=== PATIENT | male | born 1945 | race Caucasian/White ===

== ENCOUNTER 2024-08-26 08:42 | Outpatient (OUT) | payer MEDICARE, OTHER, SELFPAY ==
--- NOTE | 2024-08-24 09:39 | V.VEINS.HP ---
Vital Signs 08/26/24 09:06 08/26/24 10:28 Weight 99.79 kg BP 130/68 156/73 H BP Location Left Brachial Left Radial BP Position Sitting Sitting BP Cuff Size Adult Large Adult BP Source Manual Cuff Automatic Cuff Respiration 18 22 H Pulse 80 Pulse Source Monitor Monitor Pulse Oximetry (%) 95 94 L Oxygen Delivery Method Room Air Room Air Comment The patient's blood pressure is elevated. The patient's blood pressure is elevated. Varicose Veins Patient is a 79 year old male in this day as a referral from his PCP Dr. Bedoya secondary to redness and swelling to left lower leg. Patient states in October of 2023 he developed a spontaneous ulcer to his left mid medial-posterior lower leg. This ulcer still exitsts to this day 1.5cm in diameter. Since then he has been treated by wound at [facility], cardiology involving diuretic therapy, and PCP for cellulitis of this area to left lower leg. Patient c/o edema and significant tenderness to touch mostly noted to left lower leg. Patient states wound clinic initiated bilateral leg knee high compression stockings approximately 3 months ago and this had helped with edema. IBandar MD personally performed the services described in this documentation, as scribed by Tin Montague RN in my presence and it is both accurate and complete. I, Tin Montague RN, am scribing for, and in the presence of, Dr. Bandar Ledezma and in the presence of the patient. . thigh: bilateral (symptoms mostly noted to left leg), knee: bilateral, calf: bilateral, ankle: bilateral and silver: bilateral dull and tender 2 9 months Worsened in recent months: Yes standing and sitting Reports erythema, limb pain and edema History of lower extremity trauma: No Superficial thrombophlebitis: No Family history of varicose veins: no Has patient had previous lower extremity venous surgery: No Patient has previously received the following treatment(s) for lower extremity varicose veins: Reports none Does patient have a history of : not applicable Has patient had lower extremity venous scan with relux testing: No Support hose used: Yes Problems walking or doing physical activity: Yes How does it affect you: weakness Do you walk much: No Do you stand much: No Review of Systems ROS Narrative Bandar Hughes MD personally performed the services described in this documentation, as scribed by iTn Montague RN in my presence and it is both accurate and complete. ITin RN, am scribing for, and in the presence of, Dr. Bandar Ledezma and in the presence of the patient. Status of ROS 10 or more systems reviewed and unremarkable except as noted in history and below Cardiovascular Reports: edema Integumentary/Breast Reports: itching, redness, skin pain, skin tenderness, skin swelling, new lesion, non-healing lesion and changes in skin color Neurological Reports: weakness in extremities PFSH PFSH Medical History (Updated 08/26/24 @ 09:20 by Tin Montague) Pacemaker ?Z95.0 - Presence of cardiac pacemaker (ICD-10) Carpal tunnel syndrome on both sides ?G56.03 - Carpal tunnel syndrome, bilateral upper limbs (ICD-10) Essential (primary) hypertension ?I10 - Essential (primary) hypertension (ICD-10) Gastroesophageal reflux ?K21.9 - Gastro-esophageal reflux disease without esophagitis (ICD-10) Hyperlipidemia ?E78.5 - Hyperlipidemia, unspecified (ICD-10) Lower back pain ?M54.50 - Low back pain, unspecified (ICD-10) Lumbar pain ?M54.50 - Low back pain, unspecified (ICD-10) Stenosis of right carotid artery ?I65.21 - Occlusion and stenosis of right carotid artery (ICD-10) Osteoarthritis ?M19.90 - Unspecified osteoarthritis, unspecified site (ICD-10) Bleeding hemorrhoids ?K64.9 - Unspecified hemorrhoids (ICD-10) Varicose veins of bilateral lower extremities with pain ?I83.813 - Varicose veins of bilateral lower extremities with pain (ICD-10) Surgical History (Updated 08/26/24 @ 10:31 by Tin Montague) Status post laser ablation of incompetent vein ?Z98.890 - Other specified postprocedural states (ICD-10) Hx laparoscopic cholecystectomy ?Z90.49 - Acquired absence of other specified parts of digestive tract (ICD-10) H/O heart artery stent ?Z95.5 - Presence of coronary angioplasty implant and graft (ICD-10) H/O aortic valve replacement ?Z95.2 - Presence of prosthetic heart valve (ICD-10) Mechanical heart valve present ?Z95.2 - Presence of prosthetic heart valve (ICD-10) H/O prosthetic heart valve ?Z95.2 - Presence of prosthetic heart valve (ICD-10) Family History (Updated 08/24/24 @ 09:53 by Tin Montague) Other Family history of CHF (congestive heart failure) Family history of diabetes mellitus Family history of myocardial infarction Social History (Updated 08/26/24 @ 09:20 by Tin Montague) Within the past year, how often did you have a drink containing alcohol: never Score interpretation: A score less than 4 is consistent with normal alcohol consumption. Smoking status: Never smoker Non-prescribed substance use: denies use Meds Home Medications and Allergies Home Medications ?Medication ?Instructions ?Recorded ?Confirmed ?Type albuterol sulfate 2.5 mg/0.5 mL 2.5 mg inhalation Q4H PRN 08/24/24 08/24/24 History solution for nebulization shortness of breath or wheezing aspirin 81 mg tablet,delayed 81 mg PO DAILY 08/24/24 08/24/24 History release (Adult Aspirin Regimen) cefdinir 300 mg capsule 300 mg PO BID 08/24/24 08/24/24 History furosemide 08/24/24 History metoprolol succinate 25 mg 12.5 mg PO DAILY 08/24/24 08/24/24 History tablet,extended release 24 hr omeprazole 40 mg capsule,delayed 40 mg PO DAILY 08/24/24 08/24/24 History release pravastatin 80 mg tablet 80 mg PO DAILY 08/24/24 08/24/24 History warfarin 2.5 mg tablet 2.5 mg PO DAILY 08/24/24 08/24/24 History Allergies Allergy/AdvReac Type Severity Reaction Status Date / Time amoxicillin (From Augmentin) Allergy Mild Redness of Verified 08/24/24 09:52 Skin clavulanic acid (From Allergy Mild Redness of Verified 08/24/24 09:52 Augmentin) Skin iodine Allergy Unknown Unknown Verified 08/24/24 09:52 iv dye Allergy Unknown Unknown Uncoded 08/24/24 09:52 Exam Narrative Exam Narrative: 1.5cm wound noted to left mid medial-posterior lower leg left pedal pulse weaker than right pedal pulse Bandar Hughes MD personally performed the services described in this documentation, as scribed by Tin Montague RN in my presence and it is both accurate and complete. ITin RN, am scribing for, and in the presence of, Dr. Bandar Ledezma and in the presence of the patient. Constitutional Documenting provider has reviewed patient's vital signs: yes Common normals: oriented x3 Cardio Peripheral pulses: posterior tibial pulses present and dorsalis pedis pulses present Extremity Common normals: normal capillary refill General: calf tenderness and edema Right lower extremity: lower leg Right lower leg: inspection and palpation Left lower extremity: lower leg Left lower leg: inspection and palpation Neuro Common normals: oriented x3 Results Imaging Venous US: Radiologist's impression: Bilateral leg reflux u/s reveals moderate to bilateral great saphenous vein venous insufficiency with dilation along with severe left small saphenous venous insufficiency with associated dilation along with bilateral leg perforating veins (left side noted near wound site), and bilateral leg branch saphenous truncal tributary varicosities. Bandar Hughes MD personally performed the services described in this documentation, as scribed by Tin Montague RN in my presence and it is both accurate and complete. Tin Hughes RN, am scribing for, and in the presence of, Dr. Bandar Ledezma and in the presence of the patient. Assessment and Plan Assessment and Plan (1) Varicose veins of bilateral lower extremities with pain: Plan Patient is for patient to continue use of bilateral leg knee high compressions stockings rest, and elevation. Patient to return for EVLTs of left GSV, left SSV, left leg perforting veins, right GSV. Once EVLTs are complete, move forward with microfoam chemical ablation bilateral leg branch saphenous truncal tributary veins, and lastly sclerotherapy to pre-hemorrhagic reticular spider veins. Bandar Hughes MD personally performed the services described in this documentation, as scribed by Tin Montague RN in my presence and it is both accurate and complete. Tin Hughes RN, am scribing for, and in the presence of, Dr. Bandar Ledezma and in the presence of the patient.
--- NOTE | 2024-08-24 09:42 | W.VEIN ---
Discharge Plan Discharge Disposition: Home, Self-Care Plan of Treatment: EVLT of bilateral GSV, right SSV, right leg perforating veins, bilateral leg microfoam chemical ablation, sclerotherapy Print Language: Nicaraguan Discharge Date/Time: 08/26/24 12:19
--- NOTE | 2024-08-24 09:43 | V.VEINS.HP ---
[facility] Medical History (Updated 08/24/24 @ 09:48 by Tin Montague) Essential (primary) hypertension ?I10 - Essential (primary) hypertension (ICD-10) Gastroesophageal reflux ?K21.9 - Gastro-esophageal reflux disease without esophagitis (ICD-10) Hyperlipidemia ?E78.5 - Hyperlipidemia, unspecified (ICD-10) Lower back pain ?M54.50 - Low back pain, unspecified (ICD-10) Lumbar pain ?M54.50 - Low back pain, unspecified (ICD-10) Stenosis of right carotid artery ?I65.21 - Occlusion and stenosis of right carotid artery (ICD-10) Osteoarthritis ?M19.90 - Unspecified osteoarthritis, unspecified site (ICD-10) Bleeding hemorrhoids ?K64.9 - Unspecified hemorrhoids (ICD-10) Varicose veins of bilateral lower extremities with pain ?I83.813 - Varicose veins of bilateral lower extremities with pain (ICD-10) Surgical History (Updated 08/24/24 @ 09:52 by Tin Montague) Hx laparoscopic cholecystectomy ?Z90.49 - Acquired absence of other specified parts of digestive tract (ICD-10) H/O heart artery stent ?Z95.5 - Presence of coronary angioplasty implant and graft (ICD-10) H/O aortic valve replacement ?Z95.2 - Presence of prosthetic heart valve (ICD-10) Mechanical heart valve present ?Z95.2 - Presence of prosthetic heart valve (ICD-10) H/O prosthetic heart valve ?Z95.2 - Presence of prosthetic heart valve (ICD-10) Family History (Updated 08/24/24 @ 09:53 by Tin Montague) Other Family history of CHF (congestive heart failure) Family history of diabetes mellitus Family history of myocardial infarction Meds Home Medications and Allergies Home Medications ?Medication ?Instructions ?Recorded ?Confirmed ?Type albuterol sulfate 2.5 mg/0.5 mL 2.5 mg inhalation Q4H PRN 08/24/24 08/24/24 History solution for nebulization shortness of breath or wheezing aspirin 81 mg tablet,delayed 81 mg PO DAILY 08/24/24 08/24/24 History release (Adult Aspirin Regimen) cefdinir 300 mg capsule 300 mg PO BID 08/24/24 08/24/24 History furosemide 08/24/24 History metoprolol succinate 25 mg 12.5 mg PO DAILY 08/24/24 08/24/24 History tablet,extended release 24 hr omeprazole 40 mg capsule,delayed 40 mg PO DAILY 08/24/24 08/24/24 History release pravastatin 80 mg tablet 80 mg PO DAILY 08/24/24 08/24/24 History warfarin 2.5 mg tablet 2.5 mg PO DAILY 08/24/24 08/24/24 History Allergies Allergy/AdvReac Type Severity Reaction Status Date / Time amoxicillin (From Augmentin) Allergy Mild Redness of Verified 08/24/24 09:52 Skin clavulanic acid (From Allergy Mild Redness of Verified 08/24/24 09:52 Augmentin) Skin iodine Allergy Unknown Unknown Verified 08/24/24 09:52 iv dye Allergy Unknown Unknown Uncoded 08/24/24 09:52 Assessment and Plan Assessment and Plan (1) Varicose veins of bilateral lower extremities with pain: Plan Patient is to Bandar Hughes MD personally performed the services described in this documentation, as scribed by Tin Montague RN in my presence and it is both accurate and complete. Tin Hughes RN, am scribing for, and in the presence of, Dr. Bandar Ledezma and in the presence of the patient.
--- NOTE | 2024-08-24 09:54 | W.VEIN ---
Discharge Plan Discharge Disposition: Home, Self-Care Print Language: [place] Islander
--- NOTE | 2024-08-24 10:34 | W.VEIN ---
Discharge Plan Discharge Disposition: Home, Self-Care Print Language: Montenegrin
--- NOTE | 2024-08-26 08:44 | VEIN_ITS ---
Patient Name: URBANO OSBORN MR#: [id number] : 1945 Exam Date: 08/26/2024 Ordering Doctor: DR BANDAR CABRERA M.D. RADIOLOGY REPORT PROCEDURE: VC EXT VENOUS REFLUX JAREK LMTD COMPARISON: None. INDICATIONS: I83.813 TECHNIQUE: Duplex imaging of the lower extremity to assess the deep and superficial venous system for the presence of deep or superficial venous incompetence and to document the location and severity of disease. The study includes evaluation of the great saphenous vein (GSV), anterior accessory saphenous vein (AASV) and small saphenous vein (SSV). Patient scanned in reverse Trendelenburg and standing. FINDINGS: RIGHT LOWER EXTREMITY: Saphenofemoral Junction Reflux: Yes 9.2mm 2.4 sec GSV: Diam (mm) Reflux/ Time (sec) Proximal Thigh 5.9 Yes 1.6 Mid Thigh 5.3 Yes 1.0 Distal Thigh 5.0 No Prox Calf 4.4 Yes 1.3 Mid Calf 2.8 Yes 0.6 Saphenopopliteal Junction Reflux: 3.9mm No SSV: Proximal Calf 2.8 No Mid Calf 2.3 Yes 0.5 AASV: Not present Thrombi: No acute or chronic thrombus visualized Compressibility: Normal Flow: Normal Preforator: Dist/med calf 4.0mm with 0s reflux. Tech Note: Incompetent GSV. Patent varicose vein prox/med calf 3.5mm with 1.3s reflux. Patent varicose vein dist/med calf 3.4mm with 0.8s reflux. LEFT LOWER EXTREMITY: Saphenofemoral Junction Reflux: Yes 9.3 mm 1.4 sec GSV: Diam (mm) Reflux/Time (sec) Proximal Thigh 7.2 Yes 1.2 Mid Thigh 5.8 Yes 1.2 Distal Thigh 5.3 Yes 0.9 Prox Calf 5.2 No Mid Calf 2.2 No Saphenopopliteal Junction Relux: 6.1 mm Yes 2.0 SSV: Proximal Calf 5.5 Yes 1.4 Mid Calf 4.1 Yes 3.1 AASV: Proximal Thigh 3.8 No Mid Thigh 2.5 Yes 0.6 Distal Thigh Thrombi: No acute or chronic thrombus visualized Compressibility: Normal Flow: Mild reflux visualized in [employer]: Dist/med calf 4.5mm with 1.8s reflux. Tech Note: Incompetent GSV and SSV. Patent varicose vein dist/med calf 3.8mm with 0.7s reflux. Patent varicose vein mid/med calf 4.6mm with 1.2s reflux. Patent varicose vein mid/lat calf. 2.6mm with 0.4s reflux. CONCLUSION: 1. [id number] bilateral great saphenous vein venous insufficiency with dilatation and saphenofemoral junction reflux 2. Severe left small saphenous vein venous insufficiency with dilatation and saphenous popliteal junction reflux 3. Bilateral incompetent perforating veins 4. Bilateral incompetent varicose veins Dictated by: Bandar Cabrera MD on 08/26/2024 at 09:59 Approved by: Bandar Cabrera MD on 08/26/2024 at 10:02
--- NOTE | 2024-08-26 08:44 | VEIN_ITS ---
Patient Name: URBANO OSBORN MR#: [id number] : 1945 Exam Date: 08/26/2024 Ordering Doctor: DR BANDAR CABRERA M.D. RADIOLOGY REPORT PROCEDURE: [facility] - OFFICE VISIT INITIAL COMPARISON: None. PROGRESS NOTES: 79-year-old male who presents from his primary care physician, Dr. Bedoya with a 10 month history of left lower extremity pain swelling nonhealing ulceration and repeated episodes of cellulitis requiring multiple rounds of antibiotics. The ulcer is partially healed currently after treatments at the [facility] wound Center which he continues to be seen. The patient is not currently on antibiotics. 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 The patient has worn compression stockings for 3 months prescribed by the wound center. The patient denies any signs and symptoms to suggest arterial ischemia. The patient describes a family history significant for congestive heart failure, diabetes and myocardial infarction. Past medical history significant for pacemaker, central hypertension, GERD, hyperlipidemia, back pain, right carotid artery occlusion, osteoarthritis, hemorrhoids and varicose veins. Surgical history significant for cholecystectomy, heart stent, aortic valve replacement due to stenosis. Social history. The patient does not drink alcohol. No drug abuse. The patient has never smoked. No history of deep venous thrombus or pulmonary embolus. See separate history and physical for medication list. No prior treatment for varicose or spider veins. Nursing notes were reviewed. After history and physical exam I discussed at length the pathophysiology of venous hypertension and possible treatments, therapies and strategies available. We discussed at length the importance of elevating the lower extremities above the level of the heart, increased physical activity and compression stocking use. We discussed conservative therapy with compression stockings. We discussed surgical interventions including ligation stripping and phlebectomy. We discussed intravenous laser ablation, micro foam chemical ablation and injection sclerotherapy at length. Risks benefits and alternatives were discussed with the patient's questions were answered . Ultrasound venous reflux study performed the same day was discussed at length with the patient. The report demonstrates mild to moderate bilateral great saphenous vein venous insufficiency with dilatation saphenofemoral junction reflux. Severe left small saphenous vein venous insufficiency with dilatation saphenous popliteal junction reflux. Bilateral incompetent perforating veins with a large incompetent perforating veins subjacent to the patient's venous stasis ulceration left anterolateral lower leg period bilateral incompetent varicose veins PHYSICAL EXAM: The right leg demonstrates mild scattered varicose, moderate scattered reticular and spider veins. Minimal subcutaneous edema of the ankle and foot. Mild hemosiderin staining. The left leg demonstrates mild to moderate scattered varicose, reticular and spider veins. Moderate subcutaneous edema below the knee extending to the ankle and foot. Large area of mild erythema and redness along the anterior silver extending from the medial to the lateral lower leg. 1 cm partially healed ulceration distal anterolateral left lower leg. Both thighs, legs and feet were symmetrically warm to the touch. Good posterior tibial and dorsalis pedis pulses were present bilaterally. VEIN/VC Facility EST Comprehensive IMPRESSION: 1. Bilateral great and left small saphenous vein venous insufficiency with dilatation and saphenofemoral/saphenopopliteal junction reflux. Incompetent perforating veins subjacent to the left venous stasis ulceration 2. Bilateral lower extremity varicose veins 3. Minimal right and moderate left lower extremity subcutaneous edema 4. No definite flow significant arterial disease 5. CEAP: C6, Ep, Asp, Pr PLAN: 1. Endovenous laser ablation of a left incompetent perforating vein followed by left small saphenous vein followed by left great saphenous vein followed by right great saphenous vein 2. Bilateral micro foam chemical ablation of incompetent varicose veins 3. Injection sclerotherapy reticular and spider 4. Long-term use of bilateral 20-30 mm thigh or knee high compression stockings 5. Leg elevation and increased physical activity for symptomatic relief Nurse notes, history and physical were reviewed and confirmed, see attached forms. The nurse was present throughout the physical exam and consultation Dictated by: Bandar Cabrera MD on 08/26/2024 at 10:33 Approved by: Bandar Cabrera MD on 08/26/2024 at 10:41
[2024-08-26 09:06] VITALS: BP 130/68; O2SAT 95
--- NOTE | 2024-08-26 10:03 | W.VEIN ---
Discharge Plan Discharge Disposition: Home, Self-Care Plan of Treatment: EVLT of bilateral GSV, right SSV, right leg perforating veins, bilateral leg microfoam chemical ablation, sclerotherapy Print Language: [place]ican Discharge Date/Time: 08/26/24 12:19
[2024-08-26 10:28] VITALS: BP 156/73; PULSE 80; O2SAT 94
== END 2024-08-26 12:19 | disposition home or self-care (01) ==
LOC: VC 08:42
PROVIDERS: PCP Family Medicine; Visit Provider Radiology Diagnostic Radiology
DX: I83.813 Varicose veins of bilateral lower extremities with pain (principal)
CPT/HCPCS: 93970; G0463

== ENCOUNTER 2025-02-28 07:29 | Outpatient (RCR) | payer MEDICARE, OTHER, SELFPAY | END 2025-03-02 23:59 | disposition home or self-care (01) | LOC: HEMC 07:29 | PROVIDERS: PCP Family Medicine; Visit Provider Internal Medicine Hematology & Oncology | DX: D50.9 Iron deficiency anemia, unspecified (principal); K90.9 Intestinal malabsorption, unspecified; Z90.49 Acquired absence of other specified parts of digestive tract; Z95.2 Presence of prosthetic heart valve; Z95.0 Presence of cardiac pacemaker; Z87.891 Personal history of nicotine dependence | CPT/HCPCS: G0463 ==

== ENCOUNTER 2025-03-10 07:34 | Outpatient (RCR) | payer MEDICARE, OTHER, SELFPAY ==
[2025-03-03 14:26] VITALS: BP 154/55; PULSE 70; TEMP 36.7; O2SAT 94
[2025-03-03] MEDS: FERRIC CARBOXYMALTOSE 750 MG in 0.9 % SODIUM CHLORIDE 250 ML 795 MG IV (14:35)
== END 2025-04-02 23:59 | disposition home or self-care (01) ==
LOC: HEMC 07:34
PROVIDERS: PCP Family Medicine; Visit Provider Internal Medicine Hematology & Oncology
DX: D50.9 Iron deficiency anemia, unspecified (principal); R79.0 Abnormal level of blood mineral; K90.9 Intestinal malabsorption, unspecified
CPT/HCPCS: 96365; J1439

== ENCOUNTER 2025-04-25 13:20 | Outpatient (RCR) | payer MEDICARE, OTHER, SELFPAY | END 2025-05-02 23:59 | disposition home or self-care (01) | LOC: HEMC 13:20 | PROVIDERS: PCP Family Medicine; Visit Provider Internal Medicine Hematology & Oncology | DX: R79.0 Abnormal level of blood mineral (principal); D50.9 Iron deficiency anemia, unspecified; K90.9 Intestinal malabsorption, unspecified; Z95.2 Presence of prosthetic heart valve; Z79.01 Long term (current) use of anticoagulants; Z95.0 Presence of cardiac pacemaker; L29.89 Other pruritus; Z87.891 Personal history of nicotine dependence; Z90.49 Acquired absence of other specified parts of digestive tract; Z95.5 Presence of coronary angioplasty implant and graft | CPT/HCPCS: G0463 ==